=== PATIENT | male | born 1995 | race Two or more races ===

== ENCOUNTER 2018-07-08 18:36 | Emergency (ER) | payer SELFPAY ==
[~2018-07-08] VITALS: Ht 175.3 cm; Wt 77.1 kg
[2018-07-08] MEDS ORDERED: NAPROXEN 500 MG TABLET PO ONE (19:00)
[2018-07-08] MEDS ORDERED: TDAP DIPH,PERTUSS,TET VAC/PF 0.5 ML DISP.SYRIN IM ONE ×2 (19:00→19:05)
[2018-07-08] MEDS ORDERED: NAPROXEN 500 MG TABLET ONE (19:05)
[2018-07-08 19:13] VITALS: BP 111/66
== END 2018-07-08 19:13 | disposition home or self-care (01) ==
LOC: ER 18:40
DX: S61.431A Puncture wound without foreign body of right hand, initial encounter (principal); S61.451A Open bite of right hand, initial encounter; W55.01XA Bitten by cat, initial encounter; Y93.89 Activity, other specified; Y92.89 Other specified places as the place of occurrence of the external cause; Y99.8 Other external cause status
CPT/HCPCS: 90715; A4663